=== PATIENT | female | born 1960 | race Caucasian/White ===

== ENCOUNTER 2016-09-13 16:39 | Emergency (ER) | payer OTHER | END 2016-09-13 21:48 | disposition home or self-care (01) | LOC: ER1 16:39 | DX: S50.312A Abrasion of left elbow, initial encounter (principal); I10 Essential (primary) hypertension; E11.9 Type 2 diabetes mellitus without complications; W01.0XXA Fall on same level from slipping, tripping and stumbling without subsequent striking against object, initial encounter; Y92.410 Unspecified street and highway as the place of occurrence of the external cause | CPT/HCPCS: 73030; 73060; 73080; 73502; 73552; 73564; 99283 ==